=== PATIENT | male | born 1995 | race African-American/Black ===

== ENCOUNTER → 2016-11-28 | Outpatient (CLI) | payer BC ==
[2015-10-20 21:40] VITALS: BP 144/73
--- NOTE | 2016-11-28 15:48 | KCIC ---
PROCEDURE Nasal bone series. HISTORY Pain after injury, direct contact with nose. TECHNIQUE Nasal bone series contains 3 images. COMPARISON None. FINDINGS Depressed nasal bone fracture is noted and appears acute. There is no definite hemo sinus. IMPRESSION Depressed nasal bone fracture appears acute. Electronically signed by: Odin Eckert MD (Nov 28, 2016 15:46:50)
== END | disposition home or self-care (01) ==
LOC: KCIC 14:59
PROVIDERS: ATTEND Family Medicine
DX: J34.89 Other specified disorders of nose and nasal sinuses (principal)
CPT/HCPCS: 70150